=== PATIENT | male | born 1940 | race Caucasian/White ===

== ENCOUNTER 2017-10-19 23:48 | Inpatient (IN) | payer MEDICARE, OTHER ==
[2017-10-20 00:48] LABS: CKMB 5.6 ng/mL (0-6.6)
[2017-10-20 01:10] LABS: Troponin I 0.749 ng/mL (< 0.028)
[2017-10-20 01:56] LABS: Bilirubin Negative (Negative); Blood, Urine Small (Negative); Clarity CLOUDY (Clear); Glucose, Urine (Dipstick) Negative (Negative); Leukocyte Moderate (Negative); Nitrite Positive (Negative); Protein, Urine (Dipstick) Negative (Neg-Trace); Specific Gravity, Urine 1.014 (1.002-1.036); Urobilinogen 0.2 mg/dL (0.2-1.0)
[2017-10-20 01:59] LABS: Bacteria/HPF None Seen HPF (None Seen); Hyaline Casts/LPF 4-6 HYALINE CAST LPF (0-3 Hyaline); Pathc Cast-AUWi Flag 0.67 (0-2.49); RBC/HPF 0-3 HPF (0-3)
[2017-10-20 02:28] LABS: Renal Epithelial None Seen HPF (0-3); Transitional Epithelial NONE SEEN HPF (0-3); Trichomonas/HPF None Seen HPF (None Seen)
[2017-10-20] MEDS ORDERED: hydrALAZINE 20 MG/ML VIAL SLOW IVP PRN (02:37)
[2017-10-20] MEDS ORDERED: Milk Of Magnesia 30 ML UDCUP PO PRN (02:37)
[2017-10-20] MEDS ORDERED: Diabetic Tussin 200 MG/10 ML UDCUP PO PRN (02:37)
[2017-10-20] MEDS ORDERED: Loperamide HCl 2 MG CAP PO PRN (02:37)
[2017-10-20] MEDS ORDERED: Acetaminophen 325 MG TAB PO PRN (02:37)
[2017-10-20] MEDS ORDERED: Loratadine 10 MG TAB PO PRN (02:37)
[2017-10-20] MEDS ORDERED: Sodium Chloride 0.65% Nasal 44 ML BOT EA NARE PRN (02:37)
[2017-10-20] MEDS ORDERED: Ondansetron ODT 4 MG TAB PO PRN (02:37)
[2017-10-20] MEDS ORDERED: Ondansetron HCl/PF 4 MG/2 ML Vial IVP PRN (02:37)
[2017-10-20] MEDS ORDERED: HYDROcodone/Acetaminophen 5/325 mg Tablet PO PRN (02:37)
[2017-10-20] MEDS ORDERED: Chloraseptic Spray 180 ml Bottle PO PRN (02:37)
[2017-10-20] MEDS ORDERED: Senokot 8.6 MG TAB PO PRN (02:37)
[2017-10-20] MEDS ORDERED: Zolpidem Tartrate 5 MG TAB PO PRN (02:37)
[2017-10-20] MEDS ORDERED: Mag-Al 1200 mg/1200 mg/30 ML UDCUP PO PRN (02:37)
[2017-10-20 02:41] VITALS: BMI 31.3
--- NOTE | 2017-10-20 02:46 | HP ---
PRIMARY CARE PHYSICIAN: Raissa Boss MD REASON FOR ADMISSION: Transfer from [facility] Emergency Room for sepsis, UTI, demand i schemia. HISTORY OF PRESENT ILLNESS: A 77-year-old male who has underlying history of benign enlargement of p rostate, who was evaluated at [facility] Emergency Room for generalized weakness. Patispike aguilar went there for an episode of fall and he was feeling more weak, dizzy, lightheaded. He was having burning discomfort and increased frequency of urination. He was having high-grade fever with chills . His temperature was recorded 103 at emergency room, he was tachycardic, hypotensive, he had elevat ed WBC count and elevated troponin. This patient was given Rocephin 2 gram, Tylenol, and aspirin and subsequently he [facility] for further evaluation and treatment. Patient is feeling more weak and because of weakness, he had episode of fall and he had an abrasion t o lateral aspect of head. He denies any focal motor symptoms. He denies any chest pain or palpitati on. He denies any complete loss of consciousness. He denies any constipation, diarrhea, melena, or hematochezia. ALLERGIES: No known drug allergies. CURRENT HOME MEDICATIONS: Aspirin 81 mg p.o. daily, cetirizine 10 mg p.o. daily. REVIEW OF SYSTEMS: The following complete review of systems was negative, unless otherwise mentioned in the HPI or below: Constitutional: Weight loss or gain, ability to conduct usual activities. Ski n: Rash, itching. Eyes: Double vision, pain. ENT/Mouth: Nose bleeding, neck stiffness, pain, ten derness. Cardiovascular: Palpitations, dyspnea on exertion, orthopnea. Respiratory: Shortness of breath, wheezing, cough, hemoptysis, fever or night sweats. Gastrointestinal: Poor appetite, abdomi nal pain, heartburn, nausea, vomiting, constipation, or diarrhea. Genitourinary: Urgency, frequency , dysuria, nocturia. Musculoskeletal: Pain, swelling. Neurologic/Psychiatric: Anxiety, depression . Allergy/Immunologic: Skin rash, bleeding tendency. Please see my HPI for pertinent positives and negatives. PAST MEDICAL HISTORY: Seasonal allergic rhinitis, osteoarthritis, benign enlargement of prostate, hi story of urinary retention, history of sensorineural deafness. PAST SURGICAL HISTORY: Joint replacement on the left side, right shoulder arthroscopic surgery for r otator cuff repair, transurethral resection of prostate. SOCIAL HISTORY: Patient denies any smoking. He chews tobacco. He drinks alcohol socially. He yasir es any other illicit drug abuse. PAST PSYCHIATRIC HISTORY: Reviewed and negative. FAMILY HISTORY: No strong family history of premature coronary artery disease, stroke, or cancer. EMERGENCY ROOM COURSE: Patient is given IV fluid 2 liter, Rocephin 2 gram, and aspirin 325 mg at [facility] Room. PHYSICAL EXAMINATION: VITAL SIGNS: Currently, blood pressure 95/45, pulse 64, respiratory rate 16, temperature 98.3, satur ation 95% on 2 liters oxygen. The patient had 102.9 fever at [facility], and his blood p ressure was 106/52. GENERAL: Patient is currently alert, awake, hard of hearing, no obvious acute distress, appears weak . HEAD: The patient does have abrasion over lateral aspect of head. EYES: Pupils round, reactive to light. Extraocular muscle intact. ENT: Oropharynx within normal limits. Moist mucous membranes. No oral lesions. No pharyngeal eryt wendy, no exudate. NECK: Supple, no JVD, no thyromegaly, no carotid bruit. LUNGS: Clear to auscultation without any rhonchi or rales. CARDIAC: S1, S2 regular without any murmur. ABDOMEN: Soft, bowel sounds present. Suprapubic discomfort noted. No gallop, no rub. BACK: Mild CVA tenderness noted on the right side. EXTREMITIES: Upper extremity: Passive movement of all joints are normal. Lower extremity: No andree a. Good peripheral pulsation. SKIN: No skin rash. HEMATOLOGICAL: No lymphadenopathy. PSYCHIATRIC: Normal affect. NEUROLOGIC: Nonfocal examination. SIGNIFICANT LABORATORY AND DIAGNOSTIC DATA: EKG showing normal sinus rhythm, left anterior fascicula r block, first degree AV block. Chest x-ray done at [facility] reviewed by malia trotter with no acute cardiopulmonary process. CT brain done at [facility], co nsistent with no acute intracranial process. CK-MB 5.6, troponin I 0.749. Initial troponin 0.18. B UN 24, creatinine 0.75. Sodium 140, potassium 4.2, carbon dioxide 26, calcium 8.9, bilirubin 0.8, al kaline phosphatase 54, AST 14, ALT 13, total protein 6.5, albumin 3.9. Lactic acid 1.2. Urinalysis consistent with leukocyte esterase moderate, wbc's 20-50. CBC: WBC 11.5, hemoglobin 11.9, platelets 116. Chest x-ray based on my review, no acute cardiopulmonary process. CT brain based on my review , no acute intracranial process. ASSESSMENT AND PLAN: 1. Sepsis with acute organ dysfunction. 2. Urinary tract infection with possible pyelonephritis. 3. Demand ischemia of myocardium. 4. Generalized weakness. 5. Hypotension. 6. Benign enlargement of prostate. 7. Osteoarthritis. 8. Sensorineural deafness. 9. Obesity. PLAN: Admission to telemetry floor, serial cardiac enzymes x3, echocardiography. We will continue w ith Rocephin 2 gram IV daily and Levaquin 750 mg IV daily, IV fluid at 125 mL per hour. Follow up on blood and urine culture result from [facility]. PT/OT evaluation. Based on clinical co urse, he may need possible placement to rehab or nursing home home. Deep venous thrombosis prophy laxis with Lovenox 40 mg subcutaneously daily. Gastrointestinal prophylaxis with Pepcid 20 mg p.o. b .i.d. CODE STATUS: The patient is FULL CODE. Patient does not have any surrogate decision maker. Disposition plan based on clinical course. For elevated troponin, we will also consult Cardiology fo r their opinion.
[2017-10-20] MEDS: Sodium Chloride 0.9% 1,000 ML IV SCH ×3 (03:00→18:12)
[2017-10-20] MEDS: cefTRIAXone\\ROCEPHIN 2 GM in Sodium Chloride 0.9% 100 ML IVPB SCH (05:15)
[2017-10-20 05:23] LABS: ALT (SGPT) 9 U/L (8-55); AST (SGOT) 17 U/L (5-34); Albumin 3.6 g/dL (3.4-4.8); Alkaline Phosphatase 48 U/L (40-150); Anion Gap 6 mmol/L (10-20); BUN (Urea Nitrogen) 19 mg/dL (8.4-25.7); Bilirubin, Total 0.9 mg/dL (0.2-1.2); Calc. Creatinine Clearance 118 mL/min (70-130); Calcium 8.7 mg/dL (7.8-10.44); Carbon Dioxide 31 mmol/L (23-31); Chloride 106 mmol/L (98-107); Estimated GFR-MDRD Greater than 90; Globulin 2.3 g/dL (2.4-3.5); Glucose 102 mg/dL (83-110); Protein, Total 5.9 g/dL (5.8-8.1); Sodium 139 mmol/L (136-145)
[2017-10-20 05:36] LABS: Troponin I 2.025 ng/mL (< 0.028)
[2017-10-20 05:42] LABS: Band 1 % (5-11); Eosinophils 1 % (0-10); Hemoglobin 11.1 g/dL (14.0-18.0); Lymphocytes 22 % (21-51); MDiff Complete? YES; Mean Corpuscular HGB CONC 32.7 g/dL (32.0-36.0); Mean Corpuscular Hemoglobin 30.2 pg (27.0-31.0); Mean Corpuscular Volume 92.5 fl (80.0-94.0); Mean Platelet Volume 9.4 fL (7.4-10.4); Monocytes 2 % (0-10); Neutrophil 73 % (42-75); PLT Morphology Comment Appears Decreased; Platelet Count 113 thou/uL (130-400); RBC Distribution Width 13.5 % (11.5-14.5); Reactive Lymphocytes 1 % (0-10); Red Blood Cell (RBC) Count 3.67 mill/uL (4.70-6.10)
[2017-10-20] MEDS: Famotidine 20 MG TAB PO SCH ×2 (08:25→21:21)
[2017-10-20] MEDS: Aspirin 325 MG TAB PO SCH (08:25)
[2017-10-20] MEDS: Saccharomyces boulardii 250 MG CAP PO SCH (08:25)
[2017-10-20] MEDS ORDERED: Enoxaparin Sodium 80 MG/0.8 ML SYRINGE SC SCH (08:30)
[2017-10-20 08:56] LABS: Troponin I 2.246 ng/mL (< 0.028)
[2017-10-20] MEDS ORDERED: Enoxaparin Sodium 40 MG/0.4 ML SYRINGE SC SCH (09:00)
--- NOTE | 2017-10-20 09:17 | PDOC.PN ---
- Subjective Encounter Start Date: 10/20/17 Encounter Start Time: 09:16 Mr. Butler was seen today in follow-up. It was noted that his troponin level has increased. He says he feels "fine" and never felt bad, other than feeling a bit weak. He denies chest pain or shortness of breath. - Objective Resuscitation Status: Resuscitation Status FULL:Full Resuscitation MAR Reviewed: Yes Vital Signs & Weight: Vital Signs (12 hours) Temp Pulse Resp BP Pulse Ox 10/20/17 08:00 96.5 F L 65 18 132/62 99 10/20/17 03:49 97.4 F L 56 L 17 112/56 L 98 10/20/17 02:40 97.4 F L 56 L 17 97 10/20/17 02:20 97.7 F 63 18 110/57 L 97 Weight Weight 218 lb I&O: 10/19/17 10/20/17 10/21/17 06:59 06:59 06:59 Output Total 700 Balance -700 Result Diagrams: 10/20/17 04:48 10/20/17 04:48 Phys Exam - Physical Examination HEENT: PERRLA Respiratory: no wheezing, no rales, no rhonchi, clear to auscultation bilateral Cardiovascular: RRR, no significant murmur Gastrointestinal: soft, non-tender, positive bowel sounds Musculoskeletal: no edema Dx/Plan (1) UTI (urinary tract infection) Status: Acute (2) Sepsis Code(s): A41.9 - SEPSIS, UNSPECIFIED ORGANISM Status: Acute (3) BPH (benign prostatic hyperplasia) Code(s): N40.0 - BENIGN PROSTATIC HYPERPLASIA WITHOUT LOWER URINRY TRACT SYMP Status: Acute - Plan * UTI with sepsis- continue Rocephin and Levaquin * Elevated troponins- possibly due to sepsis- will give an aspirin now, and check an Echo, and consult Cardiology. BP is too low to add Nitrates * BPH- stable * Generalized weakness- likely from Sepsis- PT/OT.
--- NOTE | 2017-10-20 14:59 | CON ---
DATE OF SERVICE: 10/20/2017 REASON FOR CONSULTATION: Elevated troponins. [employer] ROOM OPERATOR: Dr. Santiago Olmstead. HISTORY OF PRESENT ILLNESS: Mr. Butler is a very pleasant 77-year-old white gentleman, who comes to [facility] for fevers, chills, and weakness. He was at home and he had been feeling weak to the poin t where he fell and hit his head on the floor. He was taken to the [facility] ER in [facility] he was found to have fevers and chills. Temperature was 103, tachycardic, hypotensive with elevate d white count, so he was transferred over to this facility for higher level of care. He was found to have a urinary tract infection. During his admission, troponins were drawn, they were elevated, so Cardiology is being been consulted for this. Dr. Olmstead has followed him in the last couple years for lower extremity edema. He had a stress test b ack in 2016 that was normal. He had an ultrasound of his heart and an echocardiogram as well that sh owed that his EF was about 55% and with grade 1 diastolic dysfunction and no major valvular abnormali ty was found and this was again in 2016. He denies any chest pain, tightness, pressure. No shortnes s of breath. He did not have any syncopal spells. He was just weak and he felt his legs buckled und er him. PAST MEDICAL HISTORY: 1. Seasonal allergies. 2. Osteoarthritis. 3. Benign prostatic hypertrophy. 4. Urinary retention. 5. Sensorineural deafness. 6. Chronic lower extremity edema. PAST SURGICAL HISTORY: 1. Right shoulder arthroscopic surgery, rotator cuff. 2. Transurethral resection of prostate. SOCIAL HISTORY: He chews tobacco. Only he drinks alcohol socially. No drug use. FAMILY HISTORY: Noncontributory. REVIEW OF SYSTEMS: A 12-point review of systems was done and is all negative unless stated in the hi story of present illness. OUTPATIENT MEDICATIONS: Reviewed, and they include, 1. Cetirizine. 2. Multivitamin daily. 3. Ibuprofen. 4. Aspirin 81 a day. ALLERGIES: No known drug allergies. PHYSICAL EXAMINATION: VITAL SIGNS: Temperature 97.4, pulse 50, respiratory rate 18, satting 97% on 2 liters, blood pressur e 114/58. GENERAL: Awake, alert, oriented x3, in no distress. HEENT: Normocephalic, atraumatic. NECK: Supple. LUNGS: Clear. CARDIOVASCULAR: S1, S2, no S3 or S4, and no rubs. There is a grade 2/6 systolic murmur in the right upper sternal border. ABDOMEN: Soft. Positive bowel sounds. EXTREMITIES: No edema. SKIN: Warm and dry. LABORATORY WORK: Reviewed. CBC with a white count of 11, hemoglobin of 11, hematocrit of 33, platel et count of 113. Chemistry is unremarkable. Troponin went from 0.7 to 2.0 to 2.2. Albumin of 3.6. Normal GFR. UA shows cloudy yellow urine, small amount of blood, positive nitrites, moderate leukoc yte esterase, greater than 50 white cells. ASSESSMENT AND PLAN: 1. Non-ST elevation myocardial infarction: Most likely demand ischemia from his urinary tract infec tion. We will reevaluate his left ventricular function with an echocardiogram and make sure that it still looks the same as it did 2 years ago. 2. Urinary tract infection being treated currently per primary team. Thank you for letting me to participate in the care of your patient. We will continue to follow.
[2017-10-21] MEDS: Sodium Chloride 0.9% 1,000 ML IV SCH ×2 (04:38→09:18)
[2017-10-21] MEDS: cefTRIAXone\\ROCEPHIN 2 GM in Sodium Chloride 0.9% 100 ML IVPB SCH (04:39)
[2017-10-21 05:21] LABS: #Eosinphils 0.1 thou/uL (0.0-0.7); #Lymphocytes 1.3 thou/uL (1.20-3.40); #Monocytes 0.7 thou/uL (0.11-0.59); #Neutrophils 5.9 thou/uL (1.40-6.50); %Basophils 0.2 % (0.0-1.0); %Eosinophils 1.2 % (0.0-10.0); %Lymphocytes 16.6 % (21.0-51.0); %Monocytes 9.2 % (0.0-10.0); %Neutrophils 72.8 % (42.0-75.0); Mean Corpuscular Hemoglobin 29.8 pg (27.0-31.0); Mean Corpuscular Volume 93.1 fl (80.0-94.0); Mean Platelet Volume 8.7 fL (7.4-10.4); Platelet Count 115 thou/uL (130-400); RBC Distribution Width 13.5 % (11.5-14.5); Red Blood Cell (RBC) Count 3.68 mill/uL (4.70-6.10); White Blood Cell (WBC) Count 8.1 thou/uL (4.8-10.8)
[2017-10-21 05:38] LABS: Anion Gap 9 mmol/L (10-20); BUN (Urea Nitrogen) 16 mg/dL (8.4-25.7); Calc. Creatinine Clearance 140 mL/min (70-130); Calcium 8.7 mg/dL (7.8-10.44); Carbon Dioxide 28 mmol/L (23-31); Chloride 107 mmol/L (98-107); Estimated GFR-MDRD Greater than 90; Glucose 92 mg/dL (83-110); Sodium 140 mmol/L (136-145)
[2017-10-21] MEDS: Saccharomyces boulardii 250 MG CAP PO SCH (09:17)
[2017-10-21] MEDS: Aspirin 325 MG TAB PO SCH (09:17)
[2017-10-21] MEDS: Famotidine 20 MG TAB PO SCH ×2 (09:17→20:41)
--- NOTE | 2017-10-21 10:43 | PDOC.PN ---
- Subjective Encounter Start Date: 10/21/17 Encounter Start Time: 10:42 Mr. Butler says he feels fine. He wants to go home. - Objective Resuscitation Status: Resuscitation Status FULL:Full Resuscitation MAR Reviewed: Yes Vital Signs & Weight: Vital Signs (12 hours) Temp Pulse Resp BP Pulse Ox 10/21/17 07:38 97.6 F 62 17 97 10/21/17 07:35 97.6 F 62 17 142/65 H 97 10/21/17 03:52 97.7 F 70 16 130/61 97 10/20/17 23:36 98.3 F 64 14 138/63 97 Weight Weight 221 lb I&O: 10/20/17 10/21/17 10/22/17 06:59 06:59 06:59 Intake Total 4320 240 Output Total 700 7200 Balance -700 -2880 240 Result Diagrams: 10/21/17 05:05 10/21/17 05:05 Phys Exam - Physical Examination HEENT: PERRLA Respiratory: no wheezing, no rales, no rhonchi, clear to auscultation bilateral Cardiovascular: RRR, no significant murmur Gastrointestinal: soft, non-tender, positive bowel sounds Musculoskeletal: no edema Dx/Plan (1) UTI (urinary tract infection) Status: Acute (2) Sepsis Code(s): A41.9 - SEPSIS, UNSPECIFIED ORGANISM Status: Acute (3) BPH (benign prostatic hyperplasia) Code(s): N40.0 - BENIGN PROSTATIC HYPERPLASIA WITHOUT LOWER URINRY TRACT SYMP Status: Acute - Plan * UTI with sepsis- he is clinically improving. Urine Culture is pending. I have called our lab, and they are running a Urine Culture off the UA which was sent a few days ago. He also had a urine culture sent from Dr. Boss's Office, which is the same on at our lab- results should be available tomorrow * Elevated Tropnin's Echo results are pending, await Dr. Ojeda's recommendations * Generalzed weakness- will have PT/OT to evaluate * BPH- stable * Hopefully home tomorrow when urine culture results are available.
--- NOTE | 2017-10-21 20:36 | PDOC.CTH ---
Cardiology Progress Note - Subjective No new issues or complaints. No chest pain. - Objective Vital Signs Temp Pulse Pulse Pulse Resp BP BP 10/21/17 19:30 98.1 F 66 18 10/21/17 16:00 975 F H 61 18 10/21/17 13:20 63 59 L 118/57 L 126/58 L 10/21/17 11:57 97.9 F 65 16 BP Pulse Ox 10/21/17 19:30 153/67 H 92 L 10/21/17 16:00 152/72 H 96 10/21/17 13:20 10/21/17 11:57 142/68 H 99 Weight 221 lb 10/20/17 10/21/17 10/22/17 06:59 06:59 06:59 Intake Total 4320 2315 Output Total 700 7200 2900 Balance -700 -7261 -585 - Physical Examination General/Neuro: alert & oriented x3, NAD Neck: no JVD present Lungs: CTA, unlabored respirations Heart: RRR Abdomen: NT/ND Extremities: + edema B (1) - Telemetry Telemetry Rhythm: NSR - Labs Result Diagrams: 10/21/17 05:05 10/21/17 05:05 Troponin/CKMB CK-MB (CK-2) 5.6 ng/mL (0-6.6) 10/20/17 00:14 Troponin I 2.246 ng/mL (< 0.028) H* 10/20/17 07:39 - Assessment/Plan 1. NSTEMI, dmenad ischemia fro UTI 2, UTI PLAN: - No indication for anticoagulation. - No evidence of ACS. - Normal LV function.
[2017-10-22] MEDS: cefTRIAXone\\ROCEPHIN 2 GM in Sodium Chloride 0.9% 100 ML IVPB SCH (04:13)
[2017-10-22] MEDS: Aspirin 325 MG TAB PO SCH (08:57)
[2017-10-22] MEDS: Saccharomyces boulardii 250 MG CAP PO SCH (08:57)
[2017-10-22] MEDS: Famotidine 20 MG TAB PO SCH (08:58)
[2017-10-22 12:12] VITALS: BP 138/68; TEMP 98.1
--- NOTE | 2017-10-22 13:17 | DIS ---
PRIMARY CARE PHYSICIAN: Dr. Raissa Boss DATE OF ADMISSION: 10/20/2017 DATE OF DISCHARGE: 10/22/2017 DISCHARGE DIAGNOSES: 1. Urinary tract infection, present on admission, not catheter associated, and culture negative. 2. Sepsis. 3. Metabolic encephalopathy, resolved. 4. Benign prostatic hypertrophy with symptoms. 5. Demand ischemia. 6. Generalized weakness, physical deconditioning. CONSULTATIONS: Cardiology, Dr. Russ Ojeda. PROCEDURES: Echocardiogram 10/21/2017. Read by Dr. Parsons. EF normal 55-60%, possible diastolic dysfunction with either a flow reversal, moderate to severely dilated left atrium. Mild to moderate mitral regurgitation. Aortic valve sclerosis with normal excursion and mild TR. HISTORY OF PRESENT ILLNESS: Mr. Butler is a 77-year-old white male who recently was diagnosed with a Proteus UTI back in September of this year who was brought to the Emergency Department for altered ment al status. He initially presented to [facility] in [place] and was found to have elevated tropo norris, was transferred here for further workup. He was given Rocephin, Tylenol and aspirin and placed in the ambulance for transfer. No other sympto ms. On arrival here, the patient was admitted by Dr. Barnes. HOSPITAL COURSE: The patient was seen and examined by Dr. Barnes, was admitted to telemetry floor, was placed on telemetry monitoring. He was given Rocephin 2 grams daily and Levaquin 750 mg daily. Serial cardiac biomarkers were obtained. An echocardiogram was ordered. Cardiology consultation was requested. Echo came back fairly normal except for some E to A reversal and mild diastolic dysfunct ion, and troponins remained minimally elevated. It was felt to be demand ischemia not acute OK. He was cleared for discharge by Cardiology per our recommendations when he was ready. Overnight 018 to 10/21/2017 he remained stable. Mental status returned to normal. White count was normal. Ur ine culture from the outside facility was obtained. Cultures were negative overnight. Today, 10/22/2017, the patient has been ambulating with physical therapy and is requesting physical t herapy at home. A family caseworker consultation was obtained, family chose [facility] in [facility] and arrangements were made. He was stable for discharge on p.o. Levaquin. The urine culture d id remain negative. PHYSICAL EXAMINATION: The patient was seen and examined on the day of discharge. Discharge plan and disposition were discussed face to face with the patient, his , and his daught er present. DISCHARGE MEDICATIONS: 1. Aspirin 81 mg daily. 2. Zyrtec 10 mg daily. 3. Ibuprofen 400 mg p.o. b.i.d. p.r.n. 4. Levaquin 500 mg p.o. daily for 7 more days. 5. Multivitamin 1 tablet daily. FOLLOWUP APPOINTMENTS: Primary care physician in a week. No Cardiology follow up necessarily needed . DISCHARGE ACTIVITY: Per cardiopulmonary limits and physical limits. DISCHARGE CONDITION: Good. DISPOSITION: He will be discharged home with [facility] in [place] for physical therapy and occupational therapy.
== END 2017-10-22 15:52 | disposition home health service (06) | DRG 871 ==
LOC: ERS 23:48 → 2NO 10-20 00:53
PROVIDERS: ADMIT Internal Medicine; ATTEND Internal Medicine
DX: A41.9 Sepsis, unspecified organism (principal); G93.41 Metabolic encephalopathy; I95.9 Hypotension, unspecified; I24.8 Other forms of acute ischemic heart disease; N39.0 Urinary tract infection, site not specified; H90.5 Unspecified sensorineural hearing loss; R65.20 Severe sepsis without septic shock; N40.1 Benign prostatic hyperplasia with lower urinary tract symptoms; F17.220 Nicotine dependence, chewing tobacco, uncomplicated; Z87.440 Personal history of urinary (tract) infections; Z91.81 History of falling; E66.9 Obesity, unspecified; Z68.31 Body mass index [BMI] 31.0-31.9, adult; M19.90 Unspecified osteoarthritis, unspecified site
CPT/HCPCS: 36415; 51701; 80048; 80053; 81003; 81015; 82553; 84484; 85025; 87086; 93005; 93306; 94760; 96365; G8978-GP-CK; G8979-GP-CI; J0696; J1650; J1956; J3370; J7050

== ENCOUNTER 2018-05-29 08:27 | Outpatient (CLI) | payer MEDICARE ==
--- NOTE | 2018-05-29 15:41 | NM ---
NUCLEAR MEDICINE BRAIN IMAGING: Date: 05/29/18 CLINICAL HISTORY: Parkinson's disease. FINDINGS: There is normal, symmetric uptake of the striata bilaterally, with bilateral, appropriate crescentic- shaped focal regions of activity. IMPRESSION: Normal nuclear medicine brain imaging exam. POS: ZEYAD
== END 2018-05-29 08:28 | disposition home or self-care (01) ==
LOC: NM 08:27
PROVIDERS: ATTEND Psychiatry & Neurology Neurology
DX: G20 Parkinson's disease (principal)
CPT/HCPCS: 78607; A9584

== ENCOUNTER 2018-10-27 12:44 | Outpatient (CLI) | payer MEDICARE ==
--- NOTE | 2018-10-27 15:53 | CT ---
CT LUMBAR SPINE WITHOUT CONTRAST: Date: 10/27/18 HISTORY: Compression fracture. Severe back pain. COMPARISON: Lumbar spine radiograph from 10/20/18 and MRI from 02/10/18. FINDINGS: Aorta is mildly tortuous. Suprarenal aorta measures up to 3.1 cm. There is a fracture of the L2 vertebral body with destruction of the anterior and superior end plate, as well as retropulsion of the posterior superior end plate of 2 mm. There is narrowing of the spina l canal at this level to approximately 4.0 mm. There is also fracture of the inferior end plate of L1 with depression into the cavity of the L1 vertebral body. There is moderate widening of the L1-2 dis c space with what appear to be destructive changes of the anterior superior end plate of L2 and infer ior end plate of L1. There is also extensive swelling of the psoas musculature bilaterally, as well a s prevertebral soft tissues. There is multilevel neural foraminal narrowing throughout the lumbar spine, moderate to severe. There is anterolisthesis of L5 over S1 due to severe facet arthrosis. Neural foraminal narrowing is similar to the 2018 study. IMPRESSION: 1. Destructive changes of the L2 vertebral body with a burst fracture of retropulsion 2 mm posterior superior end plate. There is widening of the L1-2 disc space, as well as a fracture of the inferior end plate of L1. Given the destructive changes of the vertebral bodies, as well as widening of the di sc space and paraspinal muscle edema of the psoas muscles and anterior prevertebral soft tissue swell ing, underlying diskitis and osteomyelitis is of concern. Follow-up MRI with and without contrast may be beneficial if clinically warranted. 2. Multilevel severe neural foraminal narrowing as described. 3. Spinal canal narrowing of approximately 2-4 mm at L1-2 due to the posterior retropulsion of the p osterior superior end plate of L2. CODE T. POS: CHRISTI
== END 2018-10-27 12:45 | disposition home or self-care (01) ==
LOC: BICCT 12:44
PROVIDERS: ATTEND Anesthesiology Pain Medicine
DX: S32.021D Stable burst fracture of second lumbar vertebra, subsequent encounter for fracture with routine healing (principal); S32.019D Unspecified fracture of first lumbar vertebra, subsequent encounter for fracture with routine healing; M48.061 Spinal stenosis, lumbar region without neurogenic claudication
CPT/HCPCS: 72131

== ENCOUNTER 2018-10-31 09:11 | Outpatient (CLI) | payer MEDICARE ==
--- NOTE | 2018-10-31 14:37 | NM ---
WHOLE BODY BONE SCAN: Date: 10/31/18 INDICATION: Compression abnormalities of the lumbar spine. COMPARISON: Prior CT of the lumbar spine dated 10/27/18. FINDINGS: The patient received 32 mCi of technetium-99m MDP IV for the examination. There is moderate uptake involving the L1 and L2 vertebral levels, corresponding to the known edith fabián fractures of L1 and L2. No additional suspicious area of radiotracer accumulation is grossly antonio dent. There is scattered degenerative and osteoarthritic change of the shoulders, sternoclavicular joints, right knee, and feet. There is a left total knee prosthesis. There is urinary contamination within the inguinal region. IMPRESSION: Moderate activity seen at L1 and L2, corresponding to the patient's known wedge compression fractures of L1 and L2. POS: ZEYAD
== END 2018-10-31 09:12 | disposition home or self-care (01) ==
LOC: NM 09:11
PROVIDERS: ATTEND Anesthesiology Pain Medicine
DX: S32.010A Wedge compression fracture of first lumbar vertebra, initial encounter for closed fracture (principal); S32.020A Wedge compression fracture of second lumbar vertebra, initial encounter for closed fracture
CPT/HCPCS: 78306; A9503